=== PATIENT | male | born 1960 | race Caucasian/White ===

== ENCOUNTER 2020-07-26 07:10 | Emergency (ER) | payer BC, OTHER ==
[~2020-07-26] VITALS: Ht 165.1 cm; Wt 84.0 kg
[~2020-07-26 07:10] MED LIST: ARMO250T2 PO; TRAM50TA2 PO
[2020-07-26] MEDS ORDERED: SODIUM CHLORIDE 0.9% 1,000 ML IV ONE (07:30)
[2020-07-26] MEDS ORDERED: SODIUM CHLORIDE 0.9% 1,000ML IVBOLUS ONE (07:30)
[2020-07-26] MEDS ORDERED: ONDANSETRON 2MG/ML, 2ML IVPush ONE (07:30)
[2020-07-26] MEDS ORDERED: SODIUM CHLORIDE FLUSH 10ML SYR IVF ONE (07:30)
[2020-07-26 08:03] LABS: BASOPHILS % (AUTO) 1 % (0-1); EOSINOPHILS % (AUTO) 1 % (1-7); LYMPHOCYTES % (AUTO) 9 % (22-44); MEAN CORPUSCULAR HEMOGLOBIN 30.3 pg (27.5-34.5); MEAN CORPUSCULAR HGB CONC 33.9 g/dL (33.2-36.2); MEAN PLATELET VOLUME 7.8 fL (7.4-10.4); MONOCYTES % (AUTO) 5 % (2-9); NEUTROPHILS % (AUTO) 85 % (42-75); PLATELET COUNT 241 x10^3/uL (130-400); RED BLOOD COUNT 4.82 x10^6/uL (4.38-5.82); RED CELL DISTRIBUTION WIDTH 13.1 % (9.4-14.8)
[2020-07-26 08:04] LABS: MD NO
--- NOTE | 2020-07-26 08:10 | NUR ---
Pt BIB EMS with complaints of fatigue that is "worse than usual" and complaints of night sweats. IV start by EMS [employer]. 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 Rhythm shows occasional PVCs/Bigeminy. notified. Pt postioned for comfort and has no other requests at this time.
[2020-07-26 08:13] LABS: ALANINE AMINOTRANSFERASE 46 U/L (12-78); ALBUMIN 3.7 g/dL (3.4-5.0); ANION GAP 8 mmol/L (5-15); CHLORIDE 101 mmol/L (98-107)
[2020-07-26 08:17] LABS: ALKALINE PHOSPHATASE 80 U/L (45-117); BILIRUBIN,TOTAL 0.4 mg/dL (0.2-1.0); T4 (THYROXINE) 5.4 mcg/dL (4.5-12.1); TOTAL PROTEIN 6.8 g/dL (6.4-8.2); TROPONIN I 0.035 ng/mL (0.000-0.045)
[2020-07-26] MEDS ORDERED: ASPI-963 PO (08:19)
[2020-07-26] MEDS ORDERED: METO25TA35 PO (08:19)
--- NOTE | 2020-07-26 09:06 | NUR ---
Pt able to ambulate with a steady gait. Says he was fine around 0850 hours, but started feeling nausea just before ambulation. 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 BP shows 184/100.
--- NOTE | 2020-07-26 09:30 | NUR ---
PT AMBULATED TO [facility] [[email or web address]] WITH A STEADY GAIT. MONITOR IN PLACE. PT DENIES CP, SOB. MEDICATED PER JUL.
[2020-07-26 10:36] VITALS: BP 164/93
== END 2020-07-26 10:43 | disposition home or self-care (01) ==
LOC: ED 07:56
DX: R53.1 Weakness (principal); I10 Essential (primary) hypertension; R53.83 Other fatigue; I44.4 Left anterior fascicular block; I49.3 Ventricular premature depolarization; R07.9 Chest pain, unspecified
CPT/HCPCS: 36415; 71045; 80053; 83735; 83880; 84436; 84443; 84484; 85025; 93005; 96360; 99285; J7030